=== PATIENT | male | born 1980 | race Caucasian/White ===

== ENCOUNTER 2022-05-23 13:52 | Emergency (ER) | payer OTHER ==
[2022-05-23] MEDS ORDERED: Orphenadrine 60 MG/2 ML Inj IM ONE (14:39)
[2022-05-23] MEDS ORDERED: Ketorolac 60 MG/2 ML SDV IM ONE (14:39)
[2022-05-23] MEDS ORDERED: Diazepam 2 MG Tab PO ONE (14:39)
== END 2022-05-23 16:19 | disposition home or self-care (01) ==
LOC: MW.ED 13:52
DX: M54.42 Lumbago with sciatica, left side (principal); M54.41 Lumbago with sciatica, right side; F17.210 Nicotine dependence, cigarettes, uncomplicated; W18.30XA Fall on same level, unspecified, initial encounter
CPT/HCPCS: 72100; 72220; 73502; 96372; 99283; A9270; J1885; J2360